=== PATIENT | female | born 1940 | race Caucasian/White ===

== ENCOUNTER → 2016-09-19 | Outpatient (CLI) | payer MEDICARE ==
[~2016-09-19] MED LIST: AC325T PO; ASP81CT PO; COLE1TAB PO; FISH OIL PO; HCT25T PO; LEVO75TA4 PO; MULT-330 PO; NF-LISIN40 PO; OMEG1CAP PO; PRAV40TA PO; [UNRECOGNIZED DRUG - CODE] PO
--- NOTE | 2016-09-19 16:12 | Diagnostic Imaging Report ---
PROCEDURE: US Carotid Duplex Bilateral. TECHNIQUE: Multiple real-time grayscale images were obtained over the carotid arteries in various projections bilaterally. Additional duplex Doppler and color Doppler images were also obtained. INDICATION: Carotid stenosis. COMPARISON: 03/31/2013. FINDINGS: There is left greater than right carotid bulb and bifurcation predominantly calcified carotid plaque showing mild progression from the previous exam; however, this again results in no hemodynamically significant degree of luminal narrowing. On the right, the narrowing is probably around 50%. On the left, it is well less than 50%. The bilateral peak common and internal carotid arterial systolic velocities are not abnormally elevated and the ratios are unremarkable. There is antegrade vertebral flow bilaterally. The color Doppler flow reveals a normal laminar pattern. IMPRESSION: There is a mild increase in the left greater than right predominantly calcified plaques without hemodynamically significant degrees of stenosis. Dictated by: Dictated on workstation # [id number]
== END ==
LOC: RAD 13:50
PROVIDERS: ATTEND Family Medicine
DX: I65.23 Occlusion and stenosis of bilateral carotid arteries (principal)
CPT/HCPCS: 93880